=== PATIENT | female | born 2000 | race Caucasian/White ===

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

== ENCOUNTER 2022-03-10 23:10 | Emergency (ER) | payer OTHER, SELFPAY ==
[2022-03-10] MEDS ORDERED: Morphine 4 MG/ML VIAL SLOW IVP ONE (23:11)
[2022-03-10] MEDS ORDERED: Ondansetron PF 4 MG/2 ML Vial IVP ONE (23:11)
[2022-03-10] MEDS ORDERED: Ondansetron PF 4 MG/2 ML Vial ONE (23:41)
[2022-03-10] MEDS ORDERED: Morphine 4 MG/ML VIAL ONE (23:46)
[2022-03-11 00:01] LABS: BHCG - Serum Negative (NEGATIVE); Pregs Control Background? CLEAR/WHITE (CLR/WHITE); Pregs Control Bar Appear? YES (CONTROL BAR)
[2022-03-11 00:08] LABS: ALT (SGPT) 15 U/L (8-55); AST (SGOT) 16 U/L (5-30); Albumin 4.4 g/dL (3.5-5.0); Alkaline Phosphatase 83 U/L (40-100); Anion Gap 15 mmol/L (10-20); BUN (Urea Nitrogen) 6 mg/dL (8.4-21.0); Bilirubin, Total 0.5 mg/dL (0.2-1.2); Calc. Creatinine Clearance 0 mL/min (70-130); Calcium 9.1 mg/dL (7.8-10.44); Carbon Dioxide 24 mmol/L (22-29); Chloride 104 mmol/L (98-107); Globulin 2.7 g/dL (2.4-3.5); Glucose 110 mg/dL (70-105); Lipase 28 U/L (8-78); Potassium 3.7 mmol/L (3.5-5.1); Protein, Total 7.1 g/dL (6.0-8.3); Sodium 139 mmol/L (136-145)
[2022-03-11 00:13] LABS: #Basophils 0.1 thou/uL (0.0-0.2); #Lymphocytes 2.3 thou/uL (1.20-3.40); #Monocytes 0.8 thou/uL (0.11-0.59); #Neutrophils 13.6 thou/uL (1.40-6.50); %Basophils 0.5 % (0.0-1.0); %Eosinophils 0.3 % (0.0-10.0); %Lymphocytes 13.6 % (28.0-48.0); %Monocytes 4.6 % (0.0-4.0); %Neutrophils 81.1 % (31.0-61.0); Hemoglobin 14.6 g/dL (12.0-16.0); Mean Corpuscular Hemoglobin 30.1 pg (25.0-35.0); Mean Platelet Volume 6.7 fL (7.4-10.4); Platelet Count 313 thou/uL (130-400); RBC Distribution Width 11.2 % (11.5-14.5); Red Blood Cell (RBC) Count 4.84 mill/uL (4.00-5.20); White Blood Cell (WBC) Count 16.8 thou/uL (4.8-10.8)
[2022-03-11 00:29] LABS: Bilirubin Negative (Negative); Blood, Urine Moderate (Negative); Clarity Clear (Clear); Glucose, Urine (Dipstick) Negative (Negative); Ketone, Urine Negative (Negative); Leukocyte Negative (Negative); Nitrite Negative (Negative); Protein, Urine (Dipstick) Negative (Neg-Trace); Urobilinogen 0.2 mg/dL (Less than 2); pH, Urine 7.5 (5.0-9.0)
[2022-03-11 00:39] LABS: Bacteria/HPF 1+ HPF (None Seen); WBC/HPF 0-3 HPF (0-3)
== END 2022-03-11 01:02 | disposition home or self-care (01) ==
LOC: BURERS 23:10
DX: R11.2 Nausea with vomiting, unspecified (principal); R10.9 Unspecified abdominal pain
CPT/HCPCS: 80053; 81003; 81015; 83605; 83690; 84703; 85025; 96374; 96375; J2270; J2405

== ENCOUNTER 2023-10-26 10:44 | Emergency (ER) | payer BC, OTHER ==
[2023-10-26] MEDS ORDERED: Ketorolac Tromethamine 30 MG (1 mL) VIAL ONE (10:55)
[2023-10-26] MEDS ORDERED: Ondansetron PF 4 MG/2 ML Vial ONE (10:55)
[2023-10-26] MEDS ORDERED: Morphine 4 MG/ML VIAL ONE (10:55)
[2023-10-26 11:11] LABS: BHCG - Serum Negative (NEGATIVE); Pregs Control Background? CLEAR/WHITE (CLR/WHITE); Pregs Control Bar Appear? YES (CONTROL BAR)
[2023-10-26 11:13] LABS: ALT (SGPT) 14 U/L (8-55); AST (SGOT) 17 U/L (5-34); Albumin 4.6 g/dL (3.5-5.0); Alkaline Phosphatase 81 U/L (40-100); Anion Gap 16 mmol/L (10-20); BUN (Urea Nitrogen) 9 mg/dL (7.0-18.7); Bilirubin, Total 0.8 mg/dL (0.2-1.2); Calc. Creatinine Clearance 0 mL/min (70-130); Calcium 9.4 mg/dL (7.8-10.44); Carbon Dioxide 21 mmol/L (22-29); Chloride 104 mmol/L (98-107); Estimated GFR 108; Glucose 114 mg/dL (70-105); Potassium 3.7 mmol/L (3.5-5.1); Protein, Total 7.6 g/dL (6.0-8.3); Sodium 137 mmol/L (136-145)
[2023-10-26 11:19] LABS: Band 3 % (5-11); Hematocrit 40.9 % (36.0-47.0); Hemoglobin 14.5 g/dL (12.0-16.0); Lymphocytes 8 % (28-48); MDiff Complete? YES; Mean Corpuscular HGB CONC 35.5 g/dL (32.0-36.0); Mean Corpuscular Hemoglobin 30.4 pg (25.0-35.0); Mean Corpuscular Volume 85.5 fl (78.0-98.0); Monocytes 5 % (0-4); Neutrophil 84 % (31-61); Platelet Count 328 10x3/uL (130-400); RBC Distribution Width 10.5 % (11.5-14.5); Red Blood Cell (RBC) Count 4.78 mill/uL (4.00-5.20); White Blood Cell (WBC) Count 23.4 10x3/uL (4.8-10.8)
[2023-10-26] MEDS ORDERED: HYDROmorphone 0.5 MG/0.5 ML SYRINGE ONE (11:37)
[2023-10-26] MEDS ORDERED: Piperacillin/Tazobactam 3.375 GM VIAL ONE (11:39)
[2023-10-26] MEDS ORDERED: Sodium Chloride 0.9% 100 ML ONE (11:40)
== END 2023-10-26 12:13 | disposition admitted as inpatient to this hospital (09) ==
LOC: BURERS 10:44
DX: K35.33 Acute appendicitis with perforation, localized peritonitis, and gangrene, with abscess (principal); F17.290 Nicotine dependence, other tobacco product, uncomplicated
CPT/HCPCS: 36415; 74176; 80053; 84703; 85025; 96361; 96365; 96375; J1170; J1885; J2270; J2405; J2543; J3490